=== PATIENT | female | born 1965 | race Caucasian/White ===

== ENCOUNTER 2016-12-05 10:50 | Inpatient (IN) | payer OTHER ==
[2016-12-05 12:36] VITALS: BMI 26.5
--- NOTE | 2016-12-05 12:44 | HP ---
COWS - Scale Resting Pulse: 0= ID 80 or Below Sweatin=Flushed/Facial Moisture Restless Observation: 3= Extraneous Movement Pupil Size: 2= Moderately Dilated Bone or Joint Aches: 2= Severe Diffuse Aches Runny Nose/ Eye Tearin= Runny Nose/Eyes GI Upset > 30mins: 3= Vomiting/Diarrhea Tremor Observation: 2= Slight Tremor Visible Yawning Observation: 2= >3x During Session Anxiety or Irritability: 2=Irritable/Anxious Goose Flesh Skin: 0=Smooth Skin COWS Score: 20 CIWA Score - CIWA Score Nausea/Vomitin Muscle Tremors: 3 Anxiety: 3 Agitation: 3 Paroxysmal Sweats: 2 Orientation: 0-Oriented Tacttile Disturbances: 2-Mild Itch/Numbness/Burn Auditory Disturbances: 2-Mild Harshness/Frighten Visual Disturbances: 2-Mild Sensitivity Headache: 2-Mild CIWA-Ar Total Score: 22 Admission ROS BHS - HPI Chief Complaint: i need help to stop using drugs and alcohol Allergies/Adverse Reactions: Allergies Allergy/AdvReac Type Severity Reaction Status Date / Time No Known Allergies Allergy Verified 12/05/16 12:36 History of Present Illness: this 51 years old female with heroin,opiate dependence,alcohol,xanax,cocaine dependence,seeking help to stop,last treatment in ab at [facility] 01/07 depression nicotine dependence, weight loss no significant period of sobriety Exam Limitations: No Limitations - Ebola screening Have you traveled outside of the country in the last 21 days: No Have you had contact with anyone from an Ebola affected area: No Have you been sick,other than usual withdrawal symptoms: No Do you have a fever: No - Review of Systems Constitutional: Chills, Loss of Appetite, Malaise, Night Sweats, Changes in sleep, Weakness, Unintentional Wgt. Loss EENT: reports: Tearing, Nose Congestion Respiratory: reports: No Symptoms reported Cardiac: reports: No Symptoms Reported GI: reports: Diarrhea, Nausea, Vomiting, Abdominal cramping : reports: No Symptoms Reported Musculoskeletal: reports: Joint Pain, Joint Swelling, Muscle Pain, Joint Stiffness Integumentary: reports: Dryness Neuro: reports: Headache, Tremors Endocrine: reports: No Symptoms Reported Hematology: reports: No Symptoms Reported Psychiatric: reports: Judgement Intact, Depressed Other Systems: Reviewed and Negative Patient History - Patient Medical History Hx Anemia: No Hx Asthma: No Hx Chronic Obstructive Pulmonary Disease (COPD): No Hx Cancer: No Hx Cardiac Disorders: No Hx Congestive Heart Failure: No Hx Hypertension: No Hx Hypercholesterolemia: No Hx Pacemaker: No HX Cerebrovascular Accident: No Hx Seizures: No Hx Dementia: No Hx Diabetes: No Hx Gastrointestinal Disorders: Yes (COLITIS) Hx Liver Disease: No Hx Genitourinary Disorders: No Hx Sexually Transmitted Disorders: No Hx Renal Disease (ESRD): No Hx Thyroid Disease: No Hx Human Immunodeficiency Virus (HIV): No (last 01/07 negative) Hx Hepatitis C: No Hx Depression: Yes Hx Suicide Attempt: No Hx Bipolar Disorder: No Hx Schizophrenia: No Other Medical History: no suicidal,no homicidal - Patient Surgical History Past Surgical History: No - PPD History Previous Implant?: Yes Documented Results: Negative w/proof Implanted On Prior [facility] Admission?: No PPD to be Administered?: Yes - Reproductive History Patient is a Female of Child Bearing Age (11 -55 yrs old): Yes Last Menstrual Period: 11/29/16 Patient : No - Smoking Cessation Smoking history: Current every day smoker Have you smoked in the past 12 months: Yes Aproximately how many cigarettes per day: 20 Cigars Per Day: 0 Hx Chewing Tobacco Use: No Initiated information on smoking cessation: Yes 'Breaking Loose' booklet given: 12/05/16 - Substance & Tx. History Hx Alcohol Use: Yes Hx Substance Use: Yes Substance Use Type: Alcohol, Cocaine, Heroin, Tranquilizers Hx Substance Use Treatment: Yes ([facility] 01/07) - Substances Abused Heroin Route: Inhalation Frequency: Daily Amount used: 1 BAG Age of first use: 48 Date of Last Use: 11/21/16 Alcohol Route: Oral Frequency: Daily Amount used: 2 VODKA DRINKS Age of first use: 22 Date of Last Use: 11/21/16 Alprazolam (Xanax) Route: Oral Frequency: Daily Amount used: 3MG Age of first use: 45 Date of Last Use: 12/03/16 Cocaine Route: Inhalation Frequency: 1-3 times last 30 days Amount used: 1 GRAM Age of first use: 41 Date of Last Use: 11/29/16 VICODIN OR PERCOCET Route: Oral Frequency: Daily Amount used: 5 (10MG) PILLS Age of first use: 41 Date of Last Use: 12/05/16 Family Disease History - Family Disease History Family History: Denies Admission Physical Exam [facility] - Vital Signs Vital Signs: Vital Signs - 24 hr 12/05/16 12:32 Temperature 96.4 F L Pulse Rate 69 Respiratory 18 Rate Blood Pressure 138/74 - Physical General Appearance: Yes: Moderate Distress, Tremorous, Irritable, Sweating, Anxious HEENTM: Yes: Hearing grossly Normal, Nasal Congestion Respiratory: Yes: Lungs Clear, Normal Breath Sounds, No Respiratory Distress Neck: Yes: Within Normal Limits Breast: Yes: Breast Exam Deferred Cardiology: Yes: Within Normal Limits, Regular Rhythm, Regular Rate, S1, S2 Abdominal: Yes: Within Normal Limits, Normal Bowel Sounds, Non Tender, Flat, Soft Genitourinary: Yes: Within Normal Limits Back: Yes: Muscle Spasm Musculoskeletal: Yes: Back pain, Joint Stiffness, Muscle Pain, Muscle weakness Extremities: Yes: Normal Range of Motion, Tremors Neurological: Yes: reprographics technician II-XII NML intact, Fully Oriented, Alert, Motor Strength 5/5 Integumentary: Yes: Dry Lymphatic: Yes: Within Normal Limits - Diagnostic (1) Opioid dependence with withdrawal Current Visit: Yes Status: Acute (2) Uncomplicated sedative, hypnotic or anxiolytic withdrawal Current Visit: Yes Status: Acute (3) Cocaine dependence Current Visit: Yes Status: Acute (4) Weight loss Current Visit: Yes Status: Chronic (5) Depression Current Visit: Yes Status: Acute (6) Nicotine dependence Current Visit: Yes Status: Acute (7) Colitis Current Visit: Yes Status: Chronic Cleared for Admission [facility] - Detox or Rehab [facility] Level of Care: Medically Managed Detox Regimen/Protocol: Methadone/Valium [facility] Breath Alcohol Content Breath Alcohol Content: 0 Urine Pregancy Test - Result Urine Test Results: Negative- NO Line Present Urine Drug Screen - Results Drug Screen Negative: No Urine Drug Screen Results: NERI-Cocaine, BZO-Benzodiazepines, MTD-Methadone, TCA- Tricyclic Antidepress, OXY-Oxycodone
[2016-12-05] MEDS ORDERED: IBUPROFEN 400 MG TABLET (FP) PO PRN (12:57)
[2016-12-05] MEDS ORDERED: NICOTINE POLACRILEX 2 MG GUM BC PRN (12:57)
[2016-12-05] MEDS ORDERED: MENTHOL/PHENOL 1 EACH UD MM PRN (12:57)
[2016-12-05] MEDS ORDERED: MAGNESIUM HYDROX 2400MG/30ML ORAL SUSPENSION 30 ML CUP PO PRN (12:57)
[2016-12-05] MEDS ORDERED: guaiFENesin/D-METHORPHAN HB 10 ML UNIT-DOSE CUPS PO PRN (12:57)
[2016-12-05] MEDS ORDERED: ACETAMINOPHEN 325 MG TABLET (FP) PO PRN (12:57)
[2016-12-05] MEDS ORDERED: MAGNESIUM CITRATE 300 ML BOTTLE PO PRN (12:57)
[2016-12-05] MEDS ORDERED: MAG HYDROX/AL HYDROX/SIMETH 30 ML UNIT-DOSE CUP PO PRN (12:57)
[2016-12-05] MEDS ORDERED: P-EPHED 60MG/TRIPROLIDI 2.5MG TABLET PO PRN (12:57)
[2016-12-05] MEDS ORDERED: hydrOXYzine PAMOATE 50 MG CAPSULE (FP) PO PRN (12:57)
[2016-12-05] MEDS ORDERED: LOPERAMIDE HCL 2 MG CAPSULE PO PRN (12:57)
[2016-12-05] MEDS ORDERED: diphenhydrAMINE HCL 50 MG CAPSULE PO PRN (12:57)
[2016-12-05] MEDS ORDERED: CYCLOBENZAPRINE HCL 10 MG TABLET (FP) PO PRN (13:03)
[2016-12-05] MEDS ORDERED: diazePAM 5 MG TABLET PO ONE (14:00)
[2016-12-05] MEDS ORDERED: METHADONE HCL 10 MG TABLET (FOR DETOX USE ONLY) PO ONE ×2 (14:00→23:00)
[2016-12-05] MEDS: NICOTINE 21 MG/24 HOURS TOPICAL PATCH TD SCH (14:09)
--- NOTE | 2016-12-05 16:32 | CONSULT ---
[facility] Psychiatric Consult - Data Date of interview: 12/05/16 Admission source: [facility] Identifying data: First admission to [facility] for this 51 y/o female seeking detox treatment on for opioid,cocaine,xanax and alcohol dependence.Patient is ,a mother of two,domiciled,unemployed and supported by her . Substance Abuse History: Smokes one pack of cigarettes daily.Patient admits to spending 50-60 dollars a day on illicit percocet (last use early today),using cocaine three times a month via snorting for a total amount of 450 dollars ( since 1999/last use 12/04/16).Has been on xanax for past 10 years at the dose of 2mg four times/day (last taken 12/03/16).Drinks vodka sporadically since age 20 ( a couple of glasses weekly/last use : two weeks ago). Medical History: Colitis.Noted sunburn (discoloration and scaly skin on forehead ). Psychiatric History: Patient admits to a brief psychiatric hospitalization at [facility] three years ago for mood dysregulation and suicidal threats (patient states that she was involved in an argument with spouse).Released after three days of observation (self-report).No OPD follow up.However,the patient reports that she was placed on wellbutrin 150 mg/day,adderall and xanax by her primary care doctor.Ms Childs denies history of suicide attempts. Physical/Sexual Abuse/Trauma History: Patient denies history of suicide attempts. Additional Comment: Urine Drug Screen is positive for cocaine,benzodiazepines, methadone,tricyclic antidepressant and oxycodone. Mental Status Exam - Mental Status Exam Alert and Oriented to: Time, Place, Person Cognitive Function: Good Patient Appearance: Well Groomed Mood: Hopeful, Euthymic Affect: Appropriate, Normal Range Patient Behavior: Appropriate, Cooperative Speech Pattern: Clear, Appropriate Voice Loudness: Normal Thought Process: Goal Oriented Thought Disorder: Not Present Hallucinations: Denies Suicidal Ideation: Denies Homicidal Ideation: Denies Insight/Judgement: Poor Sleep: Poorly, Difficulty falling asleep Appetite: Good Muscle strength/Tone: Normal Gait/Station: Normal Psychiatric Findings - Problem List ([place] 1, 2,3) (1) Cocaine dependence Current Visit: Yes Status: Acute (2) Nicotine dependence Current Visit: Yes Status: Acute (3) Opioid dependence with withdrawal Current Visit: Yes Status: Acute (4) Uncomplicated sedative, hypnotic or anxiolytic withdrawal Current Visit: Yes Status: Acute (5) Substance induced mood disorder Current Visit: Yes Status: Acute (6) Colitis Current Visit: Yes Status: Chronic (7) Weight loss Current Visit: Yes Status: Chronic (8) Insomnia Current Visit: Yes Status: Acute - Initial Treatment Plan Initial Treatment Plan: Psychoeducation provided.Detoxification in progress.[facility] report is read and appreciated.Recent pharmacy claims reviewed.Medications confirmed by filled scripts for wellbutrin on 11/26/16 + trazodone 50 mg/hs on at [facility] # [id number].Side effects/benefits discussed with patient.She consents to resume these drugs in this hospital course.Observation.NO scripts needed at discharge.
[2016-12-05 16:49] LABS: URINE APPEARANCE CLEAR; URINE BILIRUBIN NEGATIVE (NEGATIVE); URINE COLOR YELLOW; URINE GLUCOSE (UA) NEGATIVE (NEGATIVE); URINE KETONE NEGATIVE (NEGATIVE); URINE LEUK ESTERASE NEGATIVE (NEGATIVE); URINE NITRITE NEGATIVE (NEGATIVE); URINE PROTEIN NEGATIVE (NEGATIVE); URINE UROBILINOGEN NEGATIVE mg/dL (0.2-1.0)
[2016-12-05 16:54] LABS: URINE BLOOD 1+ (NEGATIVE)
[2016-12-05 16:59] LABS: URINE MUCUS RARE; URINE RBC 1 /hpf (0-3); URINE WBC 1 /hpf (3-5)
[2016-12-05] MEDS: diazePAM 5 MG TABLET PO PRN (17:11)
[2016-12-05] MEDS ORDERED: traZODone HCL 100 MG TABLET (FP) PO SCH (22:00)
[2016-12-05] MEDS: cloNIDine HCL 0.1 MG TABLET PO SCH (22:32)
[2016-12-05] MEDS: THIAMINE HCL 100 MG TABLET (FP) PO SCH (22:32)
[2016-12-05] MEDS: traZODone HCL 50 MG TABLET (FP) PO SCH (22:32)
[2016-12-05] MEDS: diazePAM 5 MG TABLET PO SCH (22:32)
[2016-12-06] MEDS: diazePAM 5 MG TABLET PO SCH ×3 (06:06→22:27)
[2016-12-06] MEDS ORDERED: METHADONE HCL 10 MG TABLET (FOR DETOX USE ONLY) PO SCH (10:00)
[2016-12-06 10:24] LABS: MCH 34.7 pg (25.7-33.7); MCHC 34.4 g/dl (32.0-36.0); MEAN CELL VOLUME 100.9 fl (80-96); PLATELET COUNT 176 K/MM3 (134-434)
[2016-12-06] MEDS: NICOTINE 21 MG/24 HOURS TOPICAL PATCH TD SCH (10:31)
[2016-12-06] MEDS: PRENATAL VITAMINS W/ FOLIC ACID TABLET (FP) PO SCH (10:31)
[2016-12-06] MEDS: cloNIDine HCL 0.1 MG TABLET PO SCH ×2 (10:31→22:29)
[2016-12-06 10:34] LABS: ALBUMIN 3.1 g/dl (3.4-5.0); ANION GAP 4 (8-16); CALCIUM 8.2 mg/dL (8.5-10.1); CO2 30 mmol/L (21-32); GLUCOSE,RANDOM 104 mg/dL (74-106)
[2016-12-06 10:39] LABS: ALK PHOS 64 U/L (45-117); BILIRUBIN,TOTAL 0.4 mg/dL (0.2-1.0); CREATININE 0.7 mg/dL (0.55-1.02); SGOT/AST 13 U/L (15-37); SGPT/ALT 18 U/L (12-78)
--- NOTE | 2016-12-06 11:13 | PN ---
S CIWA - CIWA Score Nausea/Vomitin Muscle Tremors: 3 Anxiety: 3 Agitation: 3 Paroxysmal Sweats: 3 Orientation: 0-Oriented Tacttile Disturbances: 1-Very Mild Itch/Numbness Auditory Disturbances: 0-None Visual Disturbances: 0-None Headache: 2-Mild CIWA-Ar Total Score: 18 BHS COWS - Scale Resting Pulse: 0= [place] 80 or Below Sweatin=Flushed/Facial Moisture Restless Observation: 3= Extraneous Movement Pupil Size: 0= Normal to Room Light Bone or Joint Aches: 2= Severe Diffuse Aches Runny Nose/ Eye Tearin= Nasal Congestion GI Upset > 30mins: 2= Nausea/Diarrhea Tremor Observation of Outstretched Hands: 2= Slight Tremor Visible Yawning Observation: 1= 1-2x During Session Anxiety or Irritability: 2=Irritable/Anxious Goose Flesh Skin: 3=Piloerection COWS Score: 18 S Progress Note (SOAP) Subjective: shakes, sweats, irritability, N/V Objective: 12/06/16 11:12 Vital Signs 12/06/16 12/06/16 12/06/16 03:29 06:00 09:06 Temperature 97.7 F 96.8 F L Pulse Rate 61 62 Respiratory 18 18 18 Rate Blood Pressure 96/59 99/50 Laboratory Last Values WBC 6.0 K/mm3 (4.0-10.0) 12/06/16 07:20 RBC 3.72 M/mm3 (3.60-5.2) 12/06/16 07:20 Hgb 12.9 GM/dL (10.7-15.3) 12/06/16 07:20 Hct 37.5 % (32.4-45.2) 12/06/16 07:20 MCV 100.9 fl (80-96) H 12/06/16 07:20 MCH 34.7 pg (25.7-33.7) H 12/06/16 07:20 MCHC 34.4 g/dl (32.0-36.0) 12/06/16 07:20 RDW 13.0 % (11.6-15.6) 12/06/16 07:20 Plt Count 176 K/MM3 (134-434) 12/06/16 07:20 MPV 8.0 fl (7.5-11.1) 12/06/16 07:20 Sodium 139 mmol/L (136-145) 12/06/16 07:20 Potassium 4.1 mmol/L (3.5-5.1) 12/06/16 07:20 Chloride 105 mmol/L (98-107) 12/06/16 07:20 Carbon Dioxide 30 mmol/L (21-32) 12/06/16 07:20 Anion Gap 4 (8-16) L 12/06/16 07:20 BUN 13 mg/dL (7-18) 12/06/16 07:20 Creatinine 0.7 mg/dL (0.55-1.02) 12/06/16 07:20 Creat Clearance w eGFR > 60 (>60) 12/06/16 07:20 Random Glucose 104 mg/dL (74-106) 12/06/16 07:20 Calcium 8.2 mg/dL (8.5-10.1) L 12/06/16 07:20 Total Bilirubin 0.4 mg/dL (0.2-1.0) 12/06/16 07:20 AST 13 U/L (15-37) L 12/06/16 07:20 ALT 18 U/L (12-78) 12/06/16 07:20 Alkaline Phosphatase 64 U/L (45-117) 12/06/16 07:20 Total Protein 6.0 g/dl (6.4-8.2) L 12/06/16 07:20 Albumin 3.1 g/dl (3.4-5.0) L 12/06/16 07:20 Urine Color Yellow 12/05/16 13:55 Urine Appearance Clear 12/05/16 13:55 Urine pH 5.0 (5.0-8.0) 12/05/16 13:55 Ur Specific [place] 1.025 (1.005-1.025) 12/05/16 13:55 Urine Protein Negative (NEGATIVE) 12/05/16 13:55 Urine Glucose (UA) Negative (NEGATIVE) 12/05/16 13:55 Urine Ketones Negative (NEGATIVE) 12/05/16 13:55 Urine Blood 1+ (NEGATIVE) H 12/05/16 13:55 Urine Nitrite Negative (NEGATIVE) 12/05/16 13:55 Urine Bilirubin Negative (NEGATIVE) 12/05/16 13:55 Urine Urobilinogen Negative mg/dL (0.2-1.0) 12/05/16 13:55 Ur Leukocyte Esterase Negative (NEGATIVE) 12/05/16 13:55 Urine RBC 1 /hpf (0-3) 12/05/16 13:55 Urine WBC 1 /hpf (3-5) 12/05/16 13:55 Ur Epithelial Cells Rare /hpf (FEW) 12/05/16 13:55 Urine Mucus Rare 12/05/16 13:55 Labs noted Assessment: 12/06/16 11:13 withdrawal sx Plan: continue detox
[2016-12-06] MEDS: traZODone HCL 50 MG TABLET (FP) PO SCH (22:26)
[2016-12-06] MEDS: THIAMINE HCL 100 MG TABLET (FP) PO SCH (22:29)
--- NOTE | 2016-12-07 07:43 | EKG ---
Test Reason : Blood Pressure : / mmHG Vent. Rate : 064 BPM Atrial Rate : 064 BPM P-R Int : 138 ms QRS Dur : 100 ms QT Int : 436 ms P-R-T Axes : 071 068 047 degrees QTc Int : 449 ms NORMAL SINUS RHYTHM NORMAL ECG WHEN COMPARED WITH ECG OF 24-OCT-2004 08:53, PREMATURE ATRIAL COMPLEXES ARE NO LONGER PRESENT NONSPECIFIC T WAVE ABNORMALITY NOW EVIDENT IN ANTERIOR LEADS Confirmed by RAMY HIDALGO, TESSA ([id number]) on 12/07/2016 7:42:38 AM Referred By: FRED GUAJARDO Confirmed By:TESSA MCCANN MD
[2016-12-07] MEDS: NICOTINE 21 MG/24 HOURS TOPICAL PATCH TD SCH (10:20)
[2016-12-07] MEDS: diazePAM 5 MG TABLET PO SCH ×2 (10:21→22:47)
[2016-12-07] MEDS: PRENATAL VITAMINS W/ FOLIC ACID TABLET (FP) PO SCH (10:21)
[2016-12-07] MEDS: METHADONE HCL 5 MG TABLET (FOR DETOX USE ONLY) PO SCH (10:21)
[2016-12-07] MEDS: cloNIDine HCL 0.1 MG TABLET PO SCH ×2 (10:21→22:47)
[2016-12-07] MEDS ORDERED: BISACODYL 5 MG TABLET.DR (FP) PO ONE ×2 (11:42→15:00)
[2016-12-07] MEDS: diazePAM 5 MG TABLET PO PRN (14:50)
--- NOTE | 2016-12-07 16:50 | PN ---
S CIWA - CIWA Score Nausea/Vomitin-Mild Nausea/No Vomiting Muscle Tremors: 4-Moderate,w/Arms Extend Anxiety: 4-Mod. Anxious/Guarded Agitation: 3 Paroxysmal Sweats: 1-Minimal Palms Moist Orientation: 0-Oriented Tacttile Disturbances: 1-Very Mild Itch/Numbness Auditory Disturbances: 0-None Visual Disturbances: 0-None Headache: 2-Mild CIWA-Ar Total Score: 16 BHS COWS - Scale Resting Pulse: 0= [place] 80 or Below Sweatin=Flushed/Facial Moisture Restless Observation: 3= Extraneous Movement Pupil Size: 0= Normal to Room Light Bone or Joint Aches: 2= Severe Diffuse Aches Runny Nose/ Eye Tearin= Runny Nose/Eyes GI Upset > 30mins: 1= Stomach Cramp Tremor Observation of Outstretched Hands: 2= Slight Tremor Visible Yawning Observation: 1= 1-2x During Session Anxiety or Irritability: 2=Irritable/Anxious Goose Flesh Skin: 0=Smooth Skin COWS Score: 15 [facility] Progress Note (SOAP) Subjective: Anxious, sweating, stomach ache, constipation (last bm on ), interrupted sleep Objective: 12/07/16 16:47 Last Vital Signs Temp Pulse Resp BP Pulse Ox 97.1 F L 65 18 98/64 12/07/16 13:49 12/07/16 13:49 12/07/16 13:49 12/07/16 13:49 Laboratory Tests 12/05/16 12/06/16 12/06/16 13:55 07:20 07:20 WBC 6.0 RBC 3.72 Hgb 12.9 Hct 37.5 MCV 100.9 H MCH 34.7 H MCHC 34.4 RDW 13.0 Plt Count 176 MPV 8.0 Sodium 139 Potassium 4.1 Chloride 105 Carbon Dioxide 30 Anion Gap 4 L BUN 13 Creatinine 0.7 Creat Clearance w eGFR > 60 Random Glucose 104 Calcium 8.2 L Total Bilirubin 0.4 AST 13 L ALT 18 Alkaline Phosphatase 64 Total Protein 6.0 L Albumin 3.1 L Urine Color Yellow Urine Appearance Clear Urine pH 5.0 Ur Specific [place] 1.025 Urine Protein Negative Urine Glucose (UA) Negative Urine Ketones Negative Urine Blood 1+ H Urine Nitrite Negative Urine Bilirubin Negative Urine Urobilinogen Negative Ur Leukocyte Esterase Negative Urine RBC 1 Urine WBC 1 Ur Epithelial Cells Rare Urine Mucus Rare RPR Titer 12/06/16 07:20 WBC RBC Hgb Hct MCV MCH MCHC RDW Plt Count MPV Sodium Potassium Chloride Carbon Dioxide Anion Gap BUN Creatinine Creat Clearance w eGFR Random Glucose Calcium Total Bilirubin AST ALT Alkaline Phosphatase Total Protein Albumin Urine Color Urine Appearance Urine pH Ur Specific [place] Urine Protein Urine Glucose (UA) Urine Ketones Urine Blood Urine Nitrite Urine Bilirubin Urine Urobilinogen Ur Leukocyte Esterase Urine RBC Urine WBC Ur Epithelial Cells Urine Mucus RPR Titer Nonreactive Labs noted: UA 1+ blood Noted with low blood pressure Assessment: 12/07/16 16:48 Withdrawal symptoms Noted with microscopic hematuria c/o acute constipation Plan: Continue detox Microscopic hematuria: encouraged to drink lots of water, repeat UA Acute constipation: dulcolax 10mg PO x 1 dose
[2016-12-07] MEDS: traZODone HCL 50 MG TABLET (FP) PO SCH (22:47)
[2016-12-07] MEDS: THIAMINE HCL 100 MG TABLET (FP) PO SCH (22:47)
[2016-12-08] MEDS: NICOTINE 21 MG/24 HOURS TOPICAL PATCH TD SCH (10:35)
[2016-12-08] MEDS: METHADONE HCL 5 MG TABLET (FOR DETOX USE ONLY) PO SCH (10:35)
[2016-12-08] MEDS: diazePAM 5 MG TABLET PO SCH ×2 (10:35→22:29)
[2016-12-08] MEDS: PRENATAL VITAMINS W/ FOLIC ACID TABLET (FP) PO SCH (10:35)
[2016-12-08] MEDS: cloNIDine HCL 0.1 MG TABLET PO SCH ×2 (11:25→22:28)
--- NOTE | 2016-12-08 12:10 | PN ---
S Progress Note (SOAP) Subjective: SLIGHT ANXIETY,SWEATS. DENIES OVERT ACUTE DISTRESS. Objective: 12/08/16 12:08 Vital Signs Temperature 96.8 F L 12/08/16 09:56 Pulse Rate 58 L 12/08/16 09:56 Respiratory Rate 18 12/08/16 09:56 Blood Pressure 86/57 12/08/16 09:56 O2 Sat by Pulse Oximetry (%) Laboratory Last Values WBC 6.0 K/mm3 (4.0-10.0) 12/06/16 07:20 RBC 3.72 M/mm3 (3.60-5.2) 12/06/16 07:20 Hgb 12.9 GM/dL (10.7-15.3) 12/06/16 07:20 Hct 37.5 % (32.4-45.2) 12/06/16 07:20 MCV 100.9 fl (80-96) H 12/06/16 07:20 MCH 34.7 pg (25.7-33.7) H 12/06/16 07:20 MCHC 34.4 g/dl (32.0-36.0) 12/06/16 07:20 RDW 13.0 % (11.6-15.6) 12/06/16 07:20 Plt Count 176 K/MM3 (134-434) 12/06/16 07:20 MPV 8.0 fl (7.5-11.1) 12/06/16 07:20 Sodium 139 mmol/L (136-145) 12/06/16 07:20 Potassium 4.1 mmol/L (3.5-5.1) 12/06/16 07:20 Chloride 105 mmol/L (98-107) 12/06/16 07:20 Carbon Dioxide 30 mmol/L (21-32) 12/06/16 07:20 Anion Gap 4 (8-16) L 12/06/16 07:20 BUN 13 mg/dL (7-18) 12/06/16 07:20 Creatinine 0.7 mg/dL (0.55-1.02) 12/06/16 07:20 Creat Clearance w eGFR > 60 (>60) 12/06/16 07:20 Random Glucose 104 mg/dL (74-106) 12/06/16 07:20 Calcium 8.2 mg/dL (8.5-10.1) L 12/06/16 07:20 Total Bilirubin 0.4 mg/dL (0.2-1.0) 12/06/16 07:20 AST 13 U/L (15-37) L 12/06/16 07:20 ALT 18 U/L (12-78) 12/06/16 07:20 Alkaline Phosphatase 64 U/L (45-117) 12/06/16 07:20 Total Protein 6.0 g/dl (6.4-8.2) L 12/06/16 07:20 Albumin 3.1 g/dl (3.4-5.0) L 12/06/16 07:20 Urine Color Yellow 12/05/16 13:55 Urine Appearance Clear 12/05/16 13:55 Urine pH 5.0 (5.0-8.0) 12/05/16 13:55 Ur Specific [place] 1.025 (1.005-1.025) 12/05/16 13:55 Urine Protein Negative (NEGATIVE) 12/05/16 13:55 Urine Glucose (UA) Negative (NEGATIVE) 12/05/16 13:55 Urine Ketones Negative (NEGATIVE) 12/05/16 13:55 Urine Blood 1+ (NEGATIVE) H 12/05/16 13:55 Urine Nitrite Negative (NEGATIVE) 12/05/16 13:55 Urine Bilirubin Negative (NEGATIVE) 12/05/16 13:55 Urine Urobilinogen Negative mg/dL (0.2-1.0) 12/05/16 13:55 Ur Leukocyte Esterase Negative (NEGATIVE) 12/05/16 13:55 Urine RBC 1 /hpf (0-3) 12/05/16 13:55 Urine WBC 1 /hpf (3-5) 12/05/16 13:55 Ur Epithelial Cells Rare /hpf (FEW) 12/05/16 13:55 Urine Mucus Rare 12/05/16 13:55 RPR Titer Nonreactive (NONREACTIVE) 12/06/16 07:20 Assessment: 12/08/16 12:09 WITHDRAWAL SX Plan: CONTINUE DETOX INCREASE PO FLUIDS.
[2016-12-08] MEDS: diazePAM 5 MG TABLET PO PRN (12:36)
[2016-12-08 16:06] LABS: URINE APPEARANCE CLEAR; URINE BILIRUBIN NEGATIVE (NEGATIVE); URINE BLOOD NEGATIVE (NEGATIVE); URINE COLOR STRAW; URINE GLUCOSE (UA) NEGATIVE (NEGATIVE); URINE KETONE NEGATIVE (NEGATIVE); URINE LEUK ESTERASE NEGATIVE (NEGATIVE); URINE NITRITE NEGATIVE (NEGATIVE); URINE PROTEIN NEGATIVE (NEGATIVE); URINE UROBILINOGEN NEGATIVE mg/dL (0.2-1.0)
[2016-12-08] MEDS: traZODone HCL 50 MG TABLET (FP) PO SCH (22:28)
[2016-12-08] MEDS: THIAMINE HCL 100 MG TABLET (FP) PO SCH (22:28)
[2016-12-09] MEDS ORDERED: diazePAM 5 MG TABLET PO SCH (10:00)
[2016-12-09] MEDS ORDERED: METHADONE HCL 10 MG TABLET (FOR DETOX USE ONLY) PO SCH (10:00)
[2016-12-09] MEDS: NICOTINE 21 MG/24 HOURS TOPICAL PATCH TD SCH (10:03)
[2016-12-09] MEDS: cloNIDine HCL 0.1 MG TABLET PO SCH ×2 (10:03→22:22)
[2016-12-09] MEDS: PRENATAL VITAMINS W/ FOLIC ACID TABLET (FP) PO SCH (10:03)
--- NOTE | 2016-12-09 10:28 | PN ---
S Progress Note (SOAP) Subjective: DETOX PROCEEDING WELL,DECREASED C/O DISCOMFORT. Objective: 12/09/16 10:27 Vital Signs Temperature 97.0 F L 12/09/16 09:49 Pulse Rate 65 12/09/16 09:49 Respiratory Rate 18 12/09/16 09:49 Blood Pressure 94/64 12/09/16 09:49 O2 Sat by Pulse Oximetry (%) Laboratory Last Values WBC 6.0 K/mm3 (4.0-10.0) 12/06/16 07:20 RBC 3.72 M/mm3 (3.60-5.2) 12/06/16 07:20 Hgb 12.9 GM/dL (10.7-15.3) 12/06/16 07:20 Hct 37.5 % (32.4-45.2) 12/06/16 07:20 MCV 100.9 fl (80-96) H 12/06/16 07:20 MCH 34.7 pg (25.7-33.7) H 12/06/16 07:20 MCHC 34.4 g/dl (32.0-36.0) 12/06/16 07:20 RDW 13.0 % (11.6-15.6) 12/06/16 07:20 Plt Count 176 K/MM3 (134-434) 12/06/16 07:20 MPV 8.0 fl (7.5-11.1) 12/06/16 07:20 Sodium 139 mmol/L (136-145) 12/06/16 07:20 Potassium 4.1 mmol/L (3.5-5.1) 12/06/16 07:20 Chloride 105 mmol/L (98-107) 12/06/16 07:20 Carbon Dioxide 30 mmol/L (21-32) 12/06/16 07:20 Anion Gap 4 (8-16) L 12/06/16 07:20 BUN 13 mg/dL (7-18) 12/06/16 07:20 Creatinine 0.7 mg/dL (0.55-1.02) 12/06/16 07:20 Creat Clearance w eGFR > 60 (>60) 12/06/16 07:20 Random Glucose 104 mg/dL (74-106) 12/06/16 07:20 Calcium 8.2 mg/dL (8.5-10.1) L 12/06/16 07:20 Total Bilirubin 0.4 mg/dL (0.2-1.0) 12/06/16 07:20 AST 13 U/L (15-37) L 12/06/16 07:20 ALT 18 U/L (12-78) 12/06/16 07:20 Alkaline Phosphatase 64 U/L (45-117) 12/06/16 07:20 Total Protein 6.0 g/dl (6.4-8.2) L 12/06/16 07:20 Albumin 3.1 g/dl (3.4-5.0) L 12/06/16 07:20 Urine Color [place] 12/08/16 13:20 Urine Appearance Clear 12/08/16 13:20 Urine pH 6.0 (5.0-8.0) 12/08/16 13:20 Ur Specific [place] <= 1.005 (1.005-1.025) 12/08/16 13:20 Urine Protein Negative (NEGATIVE) 12/08/16 13:20 Urine Glucose (UA) Negative (NEGATIVE) 12/08/16 13:20 Urine Ketones Negative (NEGATIVE) 12/08/16 13:20 Urine Blood Negative (NEGATIVE) 12/08/16 13:20 Urine Nitrite Negative (NEGATIVE) 12/08/16 13:20 Urine Bilirubin Negative (NEGATIVE) 12/08/16 13:20 Urine Urobilinogen Negative mg/dL (0.2-1.0) 12/08/16 13:20 Ur Leukocyte Esterase Negative (NEGATIVE) 12/08/16 13:20 Urine RBC 1 /hpf (0-3) 12/05/16 13:55 Urine WBC 1 /hpf (3-5) 12/05/16 13:55 Ur Epithelial Cells Rare /hpf (FEW) 12/05/16 13:55 Urine Mucus Rare 12/05/16 13:55 RPR Titer Nonreactive (NONREACTIVE) 12/06/16 07:20 Assessment: 12/09/16 10:27 DECREASED WITHDRAWAL SX Plan: CONTINUE DETOX
[2016-12-09] MEDS: traZODone HCL 50 MG TABLET (FP) PO SCH (22:22)
[2016-12-09] MEDS: THIAMINE HCL 100 MG TABLET (FP) PO SCH (22:22)
[2016-12-10 05:57] VITALS: BP 90/58; PULSE 67; TEMP 97
[2016-12-10] MEDS ORDERED: METHADONE HCL 5 MG TABLET (FOR DETOX USE ONLY) PO SCH (06:00)
--- NOTE | 2016-12-10 08:28 | DS ---
[facility] Detox Discharge Summary Admission Date: 12/05/16 Discharge Date: 12/10/16 - History Present History: Cocaine Dependence, Opioid Dependence, Sedative Dependence Additional Comments: DETOX COMPLETED. REMINDED TO FOLLOW UP WITH MEDICAL CARE AT [facility] IF NEEDED. - Physical Exam Results Vital Signs: Vital Signs Temperature 97 F L 12/10/16 05:56 Pulse Rate 67 12/10/16 05:56 Respiratory Rate 16 12/10/16 05:56 Blood Pressure 90/58 12/10/16 05:56 O2 Sat by Pulse Oximetry (%) - Treatment Hospital Course: Detox Protocol Followed, Detoxed Safely, Responded well, Discharged Condition Good, Rehab Referral Accepted Patient has Accepted a Rehab Referral to: [facility], [place], [place] - Medication Discharge Medications: Ambulatory Orders Bupropion HCl [Wellbutrin Xl -] 150 mg PO DAILY 12/05/16 - Diagnosis (1) Cocaine dependence Current Visit: Yes Status: Acute (2) Nicotine dependence Current Visit: Yes Status: Acute (3) Opioid dependence with withdrawal Current Visit: Yes Status: Acute (4) Uncomplicated sedative, hypnotic or anxiolytic withdrawal Current Visit: Yes Status: Acute - AMA Did Patient Leave Against Medical Advice: No
== END 2016-12-10 08:30 | disposition home or self-care (01) | DRG 773 ==
LOC: YASAS 10:50 → Y3N 13:20
PROVIDERS: ADMIT Internal Medicine; ATTEND Internal Medicine
PROC: HZ2ZZZZ Detoxification Services for Substance Abuse Treatment (ICD-10-PCS; principal; 2016-12-10)
DX: F11.23 Opioid dependence with withdrawal (principal); F13.230 Sedative, hypnotic or anxiolytic dependence with withdrawal, uncomplicated; F10.230 Alcohol dependence with withdrawal, uncomplicated; F14.20 Cocaine dependence, uncomplicated; F17.210 Nicotine dependence, cigarettes, uncomplicated; F19.24 Other psychoactive substance dependence with psychoactive substance-induced mood disorder; G47.00 Insomnia, unspecified; R63.4 Abnormal weight loss; Z68.26 Body mass index [BMI] 26.0-26.9, adult; K52.9 Noninfective gastroenteritis and colitis, unspecified
CPT/HCPCS: 36415; 80053; 81003; 81015; 85027; 86593; 93005; 93010

== ENCOUNTER 2017-05-22 13:13 | Inpatient (IN) | payer OTHER ==
[2017-05-22 14:14] VITALS: BMI 27.6
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
[2017-05-22] MEDS ORDERED: IBUPROFEN 400 MG TABLET (FP) PO PRN (18:14)
[2017-05-22] MEDS ORDERED: MENTHOL/PHENOL 1 EACH UD MM PRN (18:14)
[2017-05-22] MEDS ORDERED: P-EPHED 60MG/TRIPROLIDI 2.5MG TABLET PO PRN (18:14)
[2017-05-22] MEDS ORDERED: MAGNESIUM CITRATE 300 ML BOTTLE PO PRN (18:14)
[2017-05-22] MEDS ORDERED: MAGNESIUM HYDROX 2400MG/30ML ORAL SUSPENSION 30 ML CUP PO PRN (18:14)
[2017-05-22] MEDS ORDERED: ACETAMINOPHEN 325 MG TABLET (FP) PO PRN (18:14)
[2017-05-22] MEDS ORDERED: LOPERAMIDE HCL 2 MG CAPSULE PO PRN (18:14)
[2017-05-22] MEDS ORDERED: guaiFENesin/D-METHORPHAN HB 10 ML UNIT-DOSE CUPS PO PRN (18:14)
[2017-05-22] MEDS ORDERED: ONDANSETRON *ODT* 4 MG TABLET SL PRN (18:17)
[2017-05-22] MEDS ORDERED: METHADONE HCL 10 MG TABLET (FOR DETOX USE ONLY) PO ONE ×2 (18:30→23:00)
[2017-05-22] MEDS: diazePAM 5 MG TABLET PO PRN (19:30)
[2017-05-22] MEDS: NICOTINE 21 MG/24 HOURS TOPICAL PATCH TD SCH (20:56)
[2017-05-22] MEDS: hydrOXYzine PAMOATE 50 MG CAPSULE (FP) PO PRN (22:18)
[2017-05-22] MEDS: THIAMINE HCL 100 MG TABLET (FP) PO SCH (22:18)
[2017-05-23] MEDS: diazePAM 5 MG TABLET PO PRN ×6 (00:31→23:40)
[2017-05-23 03:50] LABS: URINE APPEARANCE CLEAR; URINE BILIRUBIN NEGATIVE (NEGATIVE); URINE BLOOD NEGATIVE (NEGATIVE); URINE COLOR LTYELLOW; URINE GLUCOSE (UA) NEGATIVE (NEGATIVE); URINE KETONE NEGATIVE (NEGATIVE); URINE LEUK ESTERASE NEGATIVE (NEGATIVE); URINE NITRITE NEGATIVE (NEGATIVE); URINE PROTEIN NEGATIVE (NEGATIVE); URINE UROBILINOGEN NEGATIVE mg/dL (0.2-1.0)
[2017-05-23] MEDS ORDERED: METHADONE HCL 10 MG TABLET (FOR DETOX USE ONLY) PO ONE (10:00)
[2017-05-23 10:05] LABS: HEMATOCRIT 41.6 % (32.4-45.2); HEMOGLOBIN 13.7 GM/dL (10.7-15.3); MCH 31.8 pg (25.7-33.7); MEAN CELL VOLUME 96.5 fl (80-96); MEAN PLT VOLUME 7.8 fl (7.5-11.1); PLATELET COUNT 203 K/MM3 (134-434); RBC 4.32 M/mm3 (3.60-5.2); RDW 12.8 % (11.6-15.6); WHITE BLOOD COUNT 8.1 K/mm3 (4.0-10.0)
[2017-05-23 10:14] LABS: ALBUMIN 3.3 g/dl (3.4-5.0); ALK PHOS 80 U/L (45-117); ANION GAP 5 (8-16); BILIRUBIN,TOTAL 0.3 mg/dL (0.2-1.0); BLOOD UREA NITROGEN 15 mg/dL (7-18); CALCIUM 7.9 mg/dL (8.5-10.1); CHLORIDE 104 mmol/L (98-107); CO2 30 mmol/L (21-32); CREATININE 0.9 mg/dL (0.55-1.02); GLUCOSE,RANDOM 87 mg/dL (74-106); SGOT/AST 10 U/L (15-37); SGPT/ALT 17 U/L (12-78); SODIUM 139 mmol/L (136-145); TOT PROT 6.6 g/dl (6.4-8.2)
[2017-05-23] MEDS: PRENATAL VITAMINS W/ FOLIC ACID TABLET (FP) PO SCH (10:20)
[2017-05-23] MEDS: NICOTINE 21 MG/24 HOURS TOPICAL PATCH TD SCH (10:22)
[2017-05-23] MEDS: NICOTINE POLACRILEX 2 MG GUM BUC PRN ×3 (10:22→17:10)
--- NOTE | 2017-05-23 11:27 | EKG ---
Test Reason : Blood Pressure : / mmHG Vent. Rate : 063 BPM Atrial Rate : 063 BPM P-R Int : 130 ms QRS Dur : 104 ms QT Int : 452 ms P-R-T Axes : 051 068 037 degrees QTc Int : 462 ms NORMAL SINUS RHYTHM NORMAL ECG WHEN COMPARED WITH ECG OF 05-DEC-2016 14:23, NO SIGNIFICANT CHANGE WAS FOUND Confirmed by AMBER HIDALGO, CHAZ ([id number]) on 05/23/2017 11:27:32 AM Referred By: Elizabeth RAPHAEL Confirmed By:CHAZ CLARK MD
[2017-05-23] MEDS: hydrOXYzine PAMOATE 50 MG CAPSULE (FP) PO PRN ×2 (12:31→17:10)
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
--- NOTE | 2017-05-23 17:01 | PN ---
BHS COWS - Scale Resting Pulse: 0= [place] 80 or Below Sweatin=Flushed/Facial Moisture Restless Observation: 1= Difficult to Sit Still Pupil Size: 1= Pupils >than Normal Bone or Joint Aches: 1= Mild Discomfort Runny Nose/ Eye Tearin= Nasal Congestion GI Upset > 30mins: 2= Nausea/Diarrhea Tremor Observation of Outstretched Hands: 2= Slight Tremor Visible Yawning Observation: 0= None Anxiety or Irritability: 0= None Goose Flesh Skin: 0=Smooth Skin COWS Score: 10 BHS Progress Note (SOAP) Subjective: sleeping problems, sweats Objective: 05/23/17 17:00 Vital Signs Temperature 98.1 F 05/23/17 13:53 Pulse Rate 71 05/23/17 13:53 Respiratory Rate 18 05/23/17 13:53 Blood Pressure 126/72 05/23/17 13:53 O2 Sat by Pulse Oximetry (%) Laboratory Last Values WBC 8.1 K/mm3 (4.0-10.0) D 05/23/17 08:00 RBC 4.32 M/mm3 (3.60-5.2) 05/23/17 08:00 Hgb 13.7 GM/dL (10.7-15.3) 05/23/17 08:00 Hct 41.6 % (32.4-45.2) 05/23/17 08:00 MCV 96.5 fl (80-96) H 05/23/17 08:00 MCH 31.8 pg (25.7-33.7) 05/23/17 08:00 MCHC 33.0 g/dl (32.0-36.0) 05/23/17 08:00 RDW 12.8 % (11.6-15.6) 05/23/17 08:00 Plt Count 203 K/MM3 (134-434) 05/23/17 08:00 MPV 7.8 fl (7.5-11.1) 05/23/17 08:00 Sodium 139 mmol/L (136-145) 05/23/17 08:00 Potassium 4.0 mmol/L (3.5-5.1) 05/23/17 08:00 Chloride 104 mmol/L (98-107) 05/23/17 08:00 Carbon Dioxide 30 mmol/L (21-32) 05/23/17 08:00 Anion Gap 5 (8-16) L 05/23/17 08:00 BUN 15 mg/dL (7-18) 05/23/17 08:00 Creatinine 0.9 mg/dL (0.55-1.02) D 05/23/17 08:00 Creat Clearance w eGFR > 60 (>60) 05/23/17 08:00 Random Glucose 87 mg/dL (74-106) 05/23/17 08:00 Calcium 7.9 mg/dL (8.5-10.1) L 05/23/17 08:00 Total Bilirubin 0.3 mg/dL (0.2-1.0) D 05/23/17 08:00 AST 10 U/L (15-37) L D 05/23/17 08:00 ALT 17 U/L (12-78) 05/23/17 08:00 Alkaline Phosphatase 80 U/L (45-117) D 05/23/17 08:00 Total Protein 6.6 g/dl (6.4-8.2) 05/23/17 08:00 Albumin 3.3 g/dl (3.4-5.0) L 05/23/17 08:00 Urine Color Ltyellow 05/22/17 23:33 Urine Appearance Clear 05/22/17 23:33 Urine pH 5.0 (5.0-8.0) 05/22/17 23:33 Ur Specific [place] 1.013 (1.001-1.035) 05/22/17 23:33 Urine Protein Negative (NEGATIVE) 05/22/17 23:33 Urine Glucose (UA) Negative (NEGATIVE) 05/22/17 23:33 Urine Ketones Negative (NEGATIVE) 05/22/17 23:33 Urine Blood Negative (NEGATIVE) 05/22/17 23:33 Urine Nitrite Negative (NEGATIVE) 05/22/17 23: Urine Bilirubin Negative (NEGATIVE) 05/22/17 23:33 Urine Urobilinogen Negative mg/dL (0.2-1.0) 05/22/17 23:33 Ur Leukocyte Esterase Negative (NEGATIVE) 05/22/17 23:33 RPR Titer Nonreactive (NONREACTIVE) 05/23/17 08:00 labs noted Assessment: 05/23/17 17:01 withdrawal sx Plan: continue detox
[2017-05-23] MEDS: THIAMINE HCL 100 MG TABLET (FP) PO SCH (22:17)
[2017-05-23] MEDS: ZOLPIDEM TARTRATE 5 MG TABLET PO PRN (22:18)
[2017-05-24] MEDS: hydrOXYzine PAMOATE 50 MG CAPSULE (FP) PO PRN ×3 (01:53→17:18)
[2017-05-24] MEDS ORDERED: METHADONE HCL 5 MG TABLET (FOR DETOX USE ONLY) PO ONE (10:00)
[2017-05-24] MEDS: PRENATAL VITAMINS W/ FOLIC ACID TABLET (FP) PO SCH (10:20)
[2017-05-24] MEDS: NICOTINE 21 MG/24 HOURS TOPICAL PATCH TD SCH (10:21)
[2017-05-24] MEDS: diazePAM 5 MG TABLET PO PRN ×4 (10:22→22:29)
[2017-05-24] MEDS: NICOTINE POLACRILEX 2 MG GUM BUC PRN ×4 (12:15→22:29)
[2017-05-24] MEDS: MAG HYDROX/AL HYDROX/SIMETH 30 ML UNIT-DOSE CUP PO PRN (17:18)
[2017-05-24] MEDS: THIAMINE HCL 100 MG TABLET (FP) PO SCH (22:29)
[2017-05-24] MEDS: ZOLPIDEM TARTRATE 5 MG TABLET PO PRN (22:29)
[2017-05-25] MEDS ORDERED: METHADONE HCL 5 MG TABLET (FOR DETOX USE ONLY) PO ONE (10:00)
[2017-05-25] MEDS: NICOTINE 21 MG/24 HOURS TOPICAL PATCH TD SCH (10:20)
[2017-05-25] MEDS: NICOTINE POLACRILEX 2 MG GUM BUC PRN (10:20)
[2017-05-25] MEDS: PRENATAL VITAMINS W/ FOLIC ACID TABLET (FP) PO SCH (10:20)
[2017-05-25] MEDS: diazePAM 5 MG TABLET PO PRN ×2 (10:21→15:06)
[2017-05-25] MEDS: MAG HYDROX/AL HYDROX/SIMETH 30 ML UNIT-DOSE CUP PO PRN (12:17)
--- NOTE | 2017-05-25 12:17 | PN ---
BHS Progress Note (SOAP) Subjective: ALERT,IRRITABLE,ANXIOUS,TREMOR,PAIN IN THE BODY AND BACK Objective: 05/25/17 12:16 Vital Signs Temperature 98.4 F 05/25/17 10:00 Pulse Rate 68 05/25/17 10:00 Respiratory Rate 18 05/25/17 10:00 Blood Pressure 102/71 05/25/17 10:00 O2 Sat by Pulse Oximetry (%) Assessment: 05/25/17 12:17 WITHDRAWAL SYMPTOM Plan: CONTINUE DETOX
[2017-05-25] MEDS: hydrOXYzine PAMOATE 50 MG CAPSULE (FP) PO PRN (12:19)
[2017-05-25] MEDS ORDERED: RANITIDINE HCL 150 MG TABLET (FP) PO ONE (15:53)
--- NOTE | 2017-05-25 15:56 | PN ---
BHS Progress Note Note: pain in epigastrium,withdrawal symptom,zantac 150 mgs po now then bid,continue detox bp 132/78,p55,r18,t97.2 close monitoring
[2017-05-25] MEDS: THIAMINE HCL 100 MG TABLET (FP) PO SCH (22:18)
[2017-05-25] MEDS: RANITIDINE HCL 150 MG TABLET (FP) PO SCH (22:18)
[2017-05-25] MEDS: ZOLPIDEM TARTRATE 5 MG TABLET PO PRN (22:18)
[2017-05-26] MEDS: hydrOXYzine PAMOATE 50 MG CAPSULE (FP) PO PRN ×4 (01:36→22:06)
[2017-05-26] MEDS ORDERED: METHADONE HCL 10 MG TABLET (FOR DETOX USE ONLY) PO ONE (10:00)
--- NOTE | 2017-05-26 10:10 | PN ---
BHS COWS - Scale Resting Pulse: 0= [place] 80 or Below Sweatin=Flushed/Facial Moisture Restless Observation: 1= Difficult to Sit Still Pupil Size: 0= Normal to Room Light Bone or Joint Aches: 2= Severe Diffuse Aches Runny Nose/ Eye Tearin= Runny Nose/Eyes GI Upset > 30mins: 2= Nausea/Diarrhea Tremor Observation of Outstretched Hands: 2= Slight Tremor Visible Yawning Observation: 1= 1-2x During Session Anxiety or Irritability: 2=Irritable/Anxious Goose Flesh Skin: 0=Smooth Skin COWS Score: 14 BHS Progress Note (SOAP) Subjective: sweats shakes interrupted sleep nausea vomiting body aches Objective: 05/26/17 10:11 Vital Signs Temperature 98.2 F 05/26/17 05:57 Pulse Rate 70 05/26/17 05:57 Respiratory Rate 18 05/26/17 05:57 Blood Pressure 115/66 05/26/17 05:57 O2 Sat by Pulse Oximetry (%) Laboratory Tests 05/22/17 05/23/17 05/23/17 23:33 08:00 08:00 WBC 8.1 D RBC 4.32 Hgb 13.7 Hct 41.6 MCV 96.5 H MCH 31.8 MCHC 33.0 RDW 12.8 Plt Count 203 MPV 7.8 Sodium 139 Potassium 4.0 Chloride 104 Carbon Dioxide 30 Anion Gap 5 L BUN 15 Creatinine 0.9 D Creat Clearance w eGFR > 60 Random Glucose 87 Calcium 7.9 L Total Bilirubin 0.3 D AST 10 L D ALT 17 Alkaline Phosphatase 80 D Total Protein 6.6 Albumin 3.3 L Urine Color Ltyellow Urine Appearance Clear Urine pH 5.0 Ur Specific [place] 1.013 Urine Protein Negative Urine Glucose (UA) Negative Urine Ketones Negative Urine Blood Negative Urine Nitrite Negative Urine Bilirubin Negative Urine Urobilinogen Negative Ur Leukocyte Esterase Negative RPR Titer 05/23/17 08:00 WBC RBC Hgb Hct MCV MCH MCHC RDW Plt Count MPV Sodium Potassium Chloride Carbon Dioxide Anion Gap BUN Creatinine Creat Clearance w eGFR Random Glucose Calcium Total Bilirubin AST ALT Alkaline Phosphatase Total Protein Albumin Urine Color Urine Appearance Urine pH Ur Specific [place] Urine Protein Urine Glucose (UA) Urine Ketones Urine Blood Urine Nitrite Urine Bilirubin Urine Urobilinogen Ur Leukocyte Esterase RPR Titer Nonreactive aaox3 ambulating no acute distress Assessment: 05/26/17 10:12 withdrawal sx Plan: continue detox increase fluids mom/mylanta prn zofran prn
[2017-05-26] MEDS: RANITIDINE HCL 150 MG TABLET (FP) PO SCH ×2 (10:14→22:07)
[2017-05-26] MEDS: PRENATAL VITAMINS W/ FOLIC ACID TABLET (FP) PO SCH (10:14)
[2017-05-26] MEDS: NICOTINE 21 MG/24 HOURS TOPICAL PATCH TD SCH (10:14)
[2017-05-26] MEDS: NICOTINE POLACRILEX 2 MG GUM BUC PRN ×4 (10:17→22:06)
[2017-05-26] MEDS: MAG HYDROX/AL HYDROX/SIMETH 30 ML UNIT-DOSE CUP PO PRN (17:04)
[2017-05-26] MEDS: ZOLPIDEM TARTRATE 5 MG TABLET PO PRN (22:06)
[2017-05-26] MEDS: THIAMINE HCL 100 MG TABLET (FP) PO SCH (22:07)
[2017-05-27] MEDS: MAG HYDROX/AL HYDROX/SIMETH 30 ML UNIT-DOSE CUP PO PRN (01:57)
[2017-05-27] MEDS ORDERED: METHADONE HCL 5 MG TABLET (FOR DETOX USE ONLY) PO ONE (06:00)
[2017-05-27 06:55] VITALS: BP 143/78; PULSE 68; TEMP 99.1
--- NOTE | 2017-05-27 08:39 | DS ---
[facility] Detox Discharge Summary Admission Date: 05/22/17 Discharge Date: 05/27/17 - History Present History: Cocaine Dependence, Opioid Dependence, Sedative Dependence - Physical Exam Results Vital Signs: Vital Signs Temperature 99.1 F 05/27/17 06:54 Pulse Rate 68 05/27/17 06:54 Respiratory Rate 16 05/27/17 06:54 Blood Pressure 143/78 05/27/17 06:54 O2 Sat by Pulse Oximetry (%) - Treatment Hospital Course: Detox Protocol Followed, Detoxed Safely, Responded well, Discharged Condition Good, Rehab Referral Accepted - Medication Discharge Medications: Ambulatory Orders Bupropion HCl [Wellbutrin Xl -] 150 mg PO DAILY 02/11/17 Hydroxyzine Pamoate [Vistaril -] 50 mg PO TID 02/11/17 Melatonin/Pyridoxine HCl (B6) [Melatonin 5 mg Tablet] 1 each PO HS 02/25/17 Buprenorphine HCl/Naloxone HCl [Buprenorphn-Naloxn 2-0.5 mg Sl] 1 each SL DAILY #30 tab.subl MDD 1 04/15/17 Buprenorphine/Naloxone [Suboxone 8Mg/2Mg Sl Film -] 1 each SL BID #60 film MDD 2 04/15/17 Bupropion HCl [Wellbutrin Xl -] 150 mg PO DAILY #30 tab.sr.24h 05/23/17 - Diagnosis (1) Cocaine dependence, uncomplicated Current Visit: Yes Status: Chronic (2) Insomnia Current Visit: Yes Status: Acute Qualifiers: Insomnia type: primary Qualified Code(s): F51.01 - Primary insomnia (3) Insomnia Current Visit: Yes Status: Acute (4) Nicotine dependence Current Visit: Yes Status: Chronic Qualifiers: Nicotine product type: cigarettes Substance use status: uncomplicated Qualified Code(s): F17.210 - Nicotine dependence, cigarettes, uncomplicated (5) Opioid dependence with withdrawal Current Visit: Yes Status: Chronic (6) Substance induced mood disorder Current Visit: Yes Status: Acute (7) Uncomplicated sedative, hypnotic or anxiolytic withdrawal Current Visit: Yes Status: Chronic (8) Depressive disorder Current Visit: Yes Status: Chronic (9) History of depression Current Visit: Yes Status: Chronic (10) Depression Current Visit: No Status: Acute (11) Encounter for monitoring Suboxone maintenance therapy Current Visit: No Status: Acute (12) Insomnia Current Visit: No Status: Acute (13) Shoulder pain Current Visit: No Status: Acute (14) Colitis Current Visit: No Status: Chronic (15) Weight loss Current Visit: No Status: Chronic - AMA Did Patient Leave Against Medical Advice: No
[2017-05-27] MEDS: RANITIDINE HCL 150 MG TABLET (FP) PO SCH (09:20)
[2017-05-27] MEDS: PRENATAL VITAMINS W/ FOLIC ACID TABLET (FP) PO SCH (09:20)
[2017-05-27] MEDS: NICOTINE 21 MG/24 HOURS TOPICAL PATCH TD SCH (09:26)
== END 2017-05-27 09:24 | disposition home or self-care (01) | DRG 773 ==
LOC: YASAS 13:13 → Y6N 16:43
PROVIDERS: ADMIT Internal Medicine; ATTEND Internal Medicine
PROC: HZ2ZZZZ Detoxification Services for Substance Abuse Treatment (ICD-10-PCS; principal; 2017-05-22)
DX: F11.23 Opioid dependence with withdrawal (principal); F13.230 Sedative, hypnotic or anxiolytic dependence with withdrawal, uncomplicated; F14.20 Cocaine dependence, uncomplicated; F19.24 Other psychoactive substance dependence with psychoactive substance-induced mood disorder; F32.9 Major depressive disorder, single episode, unspecified; G47.00 Insomnia, unspecified; R10.13 Epigastric pain; Z87.898 Personal history of other specified conditions; Z87.19 Personal history of other diseases of the digestive system
CPT/HCPCS: 36415; 80053; 81003; 85027; 86593; 93005; 93010

== ENCOUNTER 2020-08-23 18:04 | Inpatient (IN) | payer OTHER ==
[2020-08-23 19:20] VITALS: BMI 28.3
[2020-08-23] MEDS ORDERED: chlordiazePOXIDE HCL 25 MG CAPSULE PO PRN (19:20)
[2020-08-23] MEDS ORDERED: ONDANSETRON *ODT* 4 MG TABLET SL PRN (19:20)
[2020-08-23] MEDS ORDERED: NICOTINE POLACRILEX 2 MG GUM BUC PRN (19:20)
[2020-08-23] MEDS ORDERED: MAGNESIUM CITRATE 300 ML BOTTLE PO PRN (19:20)
[2020-08-23] MEDS ORDERED: IBUPROFEN 400 MG TABLET (FP) PO PRN (19:20)
[2020-08-23] MEDS ORDERED: MAG HYDROX/AL HYDROX/SIMETH 30 ML UNIT-DOSE CUP PO PRN (19:20)
[2020-08-23] MEDS ORDERED: MAGNESIUM HYDROX 2400MG/30ML ORAL SUSPENSION 30 ML CUP PO PRN (19:20)
[2020-08-23] MEDS ORDERED: MENTHOL/PHENOL 1 EACH UD MM PRN (19:20)
[2020-08-23] MEDS ORDERED: ACETAMINOPHEN 325 MG TABLET (FP) PO PRN ×2 (19:20)
[2020-08-23] MEDS ORDERED: BISMUTH SUBSALICYLATE 524 MG/30 ML UD PO PRN (19:20)
[2020-08-23] MEDS ORDERED: METHOCARBAMOL 500 MG TABLET PO PRN (19:20)
[2020-08-23] MEDS: chlordiazePOXIDE HCL 25 MG CAPSULE PO SCH ×2 (20:39→22:41)
[2020-08-23] MEDS: PRENATAL VITAMINS W/ FOLIC ACID TABLET (FP) PO SCH (20:45)
[2020-08-23] MEDS: NICOTINE 21 MG/24 HOURS TOPICAL PATCH TD SCH (20:45)
[2020-08-23] MEDS: hydrOXYzine PAMOATE 25 MG CAPSULE (FP) PO SCH (22:41)
[2020-08-23] MEDS: THIAMINE HCL 100 MG TABLET (FP) PO SCH (22:41)
[2020-08-23] MEDS: MELATONIN 5 MG TABLETS PO SCH (22:41)
[2020-08-24] MEDS: hydrOXYzine PAMOATE 25 MG CAPSULE (FP) PO SCH ×5 (06:10→22:42)
[2020-08-24] MEDS: chlordiazePOXIDE HCL 25 MG CAPSULE PO SCH ×4 (06:11→22:41)
[2020-08-24] MEDS: PRENATAL VITAMINS W/ FOLIC ACID TABLET (FP) PO SCH (10:23)
[2020-08-24] MEDS: NICOTINE 21 MG/24 HOURS TOPICAL PATCH TD SCH (10:23)
[2020-08-24 10:37] LABS: HEMATOCRIT 37.8 % (32.4-45.2); HEMOGLOBIN 13.1 GM/dL (10.7-15.3); MCH 34.3 pg (25.7-33.7); MCHC 34.6 g/dl (32.0-36.0); MEAN CELL VOLUME 99.1 fl (80-96); MEAN PLT VOLUME 7.8 fl (7.5-11.1); PLATELET COUNT 232 K/MM3 (134-434); RBC 3.82 M/mm3 (3.60-5.2); RDW 12.1 % (11.6-15.6); WHITE BLOOD COUNT 5.8 K/mm3 (4.0-10.0)
[2020-08-24 10:38] LABS: POTASSIUM 3.9 mmol/L (3.5-5.1)
[2020-08-24 10:40] LABS: ALBUMIN 3.7 g/dl (3.4-5.0); CALCIUM 8.6 mg/dL (8.5-10.1)
[2020-08-24 10:42] LABS: BLOOD UREA NITROGEN 6.7 mg/dL (7-18)
[2020-08-24 10:43] LABS: CREATININE 1.8 mg/dL (0.55-1.3)
[2020-08-24 10:45] LABS: BILIRUBIN,TOTAL 0.2 mg/dL (0.2-1); TOT PROT 7.3 g/dl (6.4-8.2)
[2020-08-24] MEDS: MELATONIN 5 MG TABLETS PO SCH (22:42)
[2020-08-24] MEDS: THIAMINE HCL 100 MG TABLET (FP) PO SCH (22:42)
[2020-08-25] MEDS: chlordiazePOXIDE HCL 25 MG CAPSULE PO SCH ×4 (06:20→22:09)
[2020-08-25] MEDS: hydrOXYzine PAMOATE 25 MG CAPSULE (FP) PO SCH ×5 (06:20→22:10)
[2020-08-25] MEDS: NICOTINE 21 MG/24 HOURS TOPICAL PATCH TD SCH (10:39)
[2020-08-25] MEDS: PRENATAL VITAMINS W/ FOLIC ACID TABLET (FP) PO SCH (10:39)
[2020-08-25] MEDS: SUVOREXANT 5 MG TABLET PO PRN (22:09)
[2020-08-25] MEDS: THIAMINE HCL 100 MG TABLET (FP) PO SCH (22:09)
[2020-08-25] MEDS: MELATONIN 5 MG TABLETS PO SCH (22:10)
[2020-08-26] MEDS ORDERED: chlordiazePOXIDE HCL 10 MG CAPSULE PO PRN
[2020-08-26] MEDS: hydrOXYzine PAMOATE 25 MG CAPSULE (FP) PO SCH ×5 (06:14→22:04)
[2020-08-26] MEDS: chlordiazePOXIDE HCL 10 MG CAPSULE PO SCH ×4 (06:15→22:05)
[2020-08-26 09:28] LABS: POTASSIUM 4.3 mmol/L (3.5-5.1)
[2020-08-26 09:31] LABS: ALBUMIN 3.4 g/dl (3.4-5.0); BLOOD UREA NITROGEN 17.2 mg/dL (7-18)
[2020-08-26 09:35] LABS: PHOSPHOROUS 3.8 mg/dL (2.5-4.9)
[2020-08-26] MEDS: NICOTINE 21 MG/24 HOURS TOPICAL PATCH TD SCH (10:41)
[2020-08-26] MEDS: PRENATAL VITAMINS W/ FOLIC ACID TABLET (FP) PO SCH (10:41)
[2020-08-26] MEDS: SUVOREXANT 5 MG TABLET PO PRN (22:02)
[2020-08-26] MEDS: MELATONIN 5 MG TABLETS PO SCH (22:03)
[2020-08-26] MEDS: THIAMINE HCL 100 MG TABLET (FP) PO SCH (22:03)
[2020-08-27] MEDS: hydrOXYzine PAMOATE 25 MG CAPSULE (FP) PO SCH ×5 (06:00→21:53)
[2020-08-27] MEDS: chlordiazePOXIDE HCL 10 MG CAPSULE PO SCH ×2 (06:00→16:56)
[2020-08-27 07:11] LABS: SARS-CoV-2 NAA Not Detected (Not Detected)
[2020-08-27] MEDS: NICOTINE 21 MG/24 HOURS TOPICAL PATCH TD SCH (10:19)
[2020-08-27] MEDS: PRENATAL VITAMINS W/ FOLIC ACID TABLET (FP) PO SCH (10:19)
[2020-08-27] MEDS: SUVOREXANT 5 MG TABLET PO PRN (21:52)
[2020-08-27] MEDS: MELATONIN 5 MG TABLETS PO SCH (21:53)
[2020-08-27] MEDS: THIAMINE HCL 100 MG TABLET (FP) PO SCH (21:53)
[2020-08-28] MEDS ORDERED: chlordiazePOXIDE HCL 10 MG CAPSULE PO ONE (05:00)
[2020-08-28] MEDS: hydrOXYzine PAMOATE 25 MG CAPSULE (FP) PO SCH (06:03)
[2020-08-28 08:51] VITALS: BP 138/73; PULSE 69; TEMP 98.7
[2020-08-28] MEDS: PRENATAL VITAMINS W/ FOLIC ACID TABLET (FP) PO SCH (09:05)
== END 2020-08-28 09:07 | disposition home or self-care (01) | DRG 774 ==
LOC: YASAS 18:04 → Y6N 19:34
PROVIDERS: ADMIT Allergy & Immunology; ATTEND Allergy & Immunology
PROC: HZ2ZZZZ Detoxification Services for Substance Abuse Treatment (ICD-10-PCS; principal; 2020-08-23)
DX: F10.230 Alcohol dependence with withdrawal, uncomplicated (principal); F13.230 Sedative, hypnotic or anxiolytic dependence with withdrawal, uncomplicated; F14.20 Cocaine dependence, uncomplicated; F17.210 Nicotine dependence, cigarettes, uncomplicated; F19.282 Other psychoactive substance dependence with psychoactive substance-induced sleep disorder; F19.24 Other psychoactive substance dependence with psychoactive substance-induced mood disorder; F32.9 Major depressive disorder, single episode, unspecified; G47.00 Insomnia, unspecified; K21.9 Gastro-esophageal reflux disease without esophagitis
CPT/HCPCS: 36415; 80053; 80069; 85027; 86780; C9803; Q0162; U0003; U0005

== ENCOUNTER 2021-11-09 10:02 | Inpatient (IN) | payer OTHER ==
[2021-11-09 11:47] VITALS: BMI 28.3
[2021-11-09] MEDS ORDERED: MAG HYDROX/AL HYDROX/SIMETH 30 ML UNIT-DOSE CUP PO PRN (12:50)
[2021-11-09] MEDS ORDERED: IBUPROFEN 400 MG TABLET (FP) PO PRN (12:50)
[2021-11-09] MEDS ORDERED: BISMUTH SUBSALICYLATE 524 MG/30 ML PO PRN (12:50)
[2021-11-09] MEDS ORDERED: MAGNESIUM HYDROX 2400MG/30ML ORAL SUSPENSION 30 ML CUP PO PRN (12:50)
[2021-11-09] MEDS ORDERED: diazePAM 5 MG TABLET PO ONE (12:50)
[2021-11-09] MEDS ORDERED: BENZOCAINE/MENTHOL (CHLORASEPTIC ) LOZENGE MM PRN (12:50)
[2021-11-09] MEDS ORDERED: NICOTINE 10 MG CARTRIDGE (INHALER) IH PRN (12:50)
[2021-11-09] MEDS ORDERED: ONDANSETRON *ODT* 4 MG TABLET SL PRN (12:50)
[2021-11-09] MEDS ORDERED: LOPERAMIDE HCL 2 MG CAPSULE PO PRN (12:50)
[2021-11-09] MEDS ORDERED: DICYCLOMINE HCL 10 MG CAPSULE PO PRN (12:50)
[2021-11-09] MEDS ORDERED: IBUPROFEN 600 MG TABLET (FP) PO PRN (12:50)
[2021-11-09] MEDS ORDERED: MAGNESIUM CITRATE 300 ML BOTTLE PO PRN (12:50)
[2021-11-09] MEDS ORDERED: ACETAMINOPHEN 325 MG TABLET (FP) PO PRN (12:50)
[2021-11-09] MEDS ORDERED: ALBUTEROL SO4 HFA INHALER IH PRN (13:05)
[2021-11-09] MEDS: diazePAM 5 MG TABLET PO SCH ×2 (18:12→22:24)
[2021-11-09] MEDS: ACETAMINOPHEN 325 MG TABLET (FP) PO PRN (18:13)
[2021-11-09] MEDS: diazePAM 5 MG TABLET PO PRN (18:16)
[2021-11-09] MEDS ORDERED: MELATONIN 5 MG TABLETS PO SCH (22:00)
[2021-11-09] MEDS: THIAMINE HCL 100 MG TABLET (FP) PO SCH (22:23)
[2021-11-10] MEDS: diazePAM 5 MG TABLET PO SCH ×4 (05:54→22:12)
[2021-11-10 10:10] LABS: HEMOGLOBIN 13.1 GM/dL (10.7-15.3); MCH 33.6 pg (25.7-33.7); MCHC 34.5 g/dl (32.0-36.0); MEAN CELL VOLUME 97.3 fl (80-96); MEAN PLT VOLUME 7.9 fl (7.5-11.1); PLATELET COUNT 197 10^3/uL (134-434); WHITE BLOOD COUNT 5.3 K/mm3 (4.0-10.0)
[2021-11-10 10:15] LABS: BLOOD UREA NITROGEN 13.6 mg/dL (7-18); CALCIUM 8.4 mg/dL (8.5-10.1)
[2021-11-10 10:16] LABS: ALBUMIN 3.2 g/dl (3.4-5.0)
[2021-11-10 10:20] LABS: BILIRUBIN,TOTAL 0.3 mg/dL (0.2-1); TOT PROT 6.9 g/dl (6.4-8.2)
[2021-11-10] MEDS: PRENATAL VITAMINS W/ FOLIC ACID TABLET (FP) PO SCH (10:39)
[2021-11-10] MEDS: diazePAM 5 MG TABLET PO PRN (13:12)
[2021-11-10] MEDS: MELATONIN 5 MG TABLETS PO SCH (22:13)
[2021-11-10] MEDS: THIAMINE HCL 100 MG TABLET (FP) PO SCH (22:13)
[2021-11-10] MEDS: METHOCARBAMOL 500 MG TABLET PO PRN (22:14)
[2021-11-11] MEDS: diazePAM 5 MG TABLET PO SCH ×3 (05:34→22:08)
[2021-11-11] MEDS: METHOCARBAMOL 500 MG TABLET PO PRN ×2 (05:34→17:42)
[2021-11-11] MEDS: PRENATAL VITAMINS W/ FOLIC ACID TABLET (FP) PO SCH (10:16)
[2021-11-11] MEDS: diazePAM 5 MG TABLET PO PRN ×2 (10:17→17:43)
[2021-11-11] MEDS: MELATONIN 5 MG TABLETS PO SCH (22:08)
[2021-11-11] MEDS: THIAMINE HCL 100 MG TABLET (FP) PO SCH (22:09)
[2021-11-12] MEDS: diazePAM 5 MG TABLET PO SCH ×2 (05:37→17:18)
[2021-11-12] MEDS: METHOCARBAMOL 500 MG TABLET PO PRN ×3 (05:37→22:13)
[2021-11-12] MEDS: diazePAM 5 MG TABLET PO PRN (10:28)
[2021-11-12] MEDS: PRENATAL VITAMINS W/ FOLIC ACID TABLET (FP) PO SCH (10:28)
[2021-11-12] MEDS: ACETAMINOPHEN 325 MG TABLET (FP) PO PRN (19:19)
[2021-11-12] MEDS: MELATONIN 5 MG TABLETS PO SCH (22:12)
[2021-11-12] MEDS: THIAMINE HCL 100 MG TABLET (FP) PO SCH (22:12)
[2021-11-13] MEDS: METHOCARBAMOL 500 MG TABLET PO PRN (05:15)
[2021-11-13] MEDS ORDERED: diazePAM 5 MG TABLET PO ONE (06:00)
[2021-11-13 08:55] VITALS: BP 105/71; PULSE 80; TEMP 96.9
== END 2021-11-13 09:33 | disposition home or self-care (01) | DRG 774 ==
LOC: YASAS 10:02 → Y3N 15:27
PROVIDERS: ADMIT Allergy & Immunology; ATTEND Surgery
PROC: HZ2ZZZZ Detoxification Services for Substance Abuse Treatment (ICD-10-PCS; principal; 2021-11-09)
DX: F10.230 Alcohol dependence with withdrawal, uncomplicated (principal); F13.230 Sedative, hypnotic or anxiolytic dependence with withdrawal, uncomplicated; F14.20 Cocaine dependence, uncomplicated; F17.210 Nicotine dependence, cigarettes, uncomplicated; F32.A Depression, unspecified; F19.24 Other psychoactive substance dependence with psychoactive substance-induced mood disorder; F19.282 Other psychoactive substance dependence with psychoactive substance-induced sleep disorder; J45.20 Mild intermittent asthma, uncomplicated; M17.0 Bilateral primary osteoarthritis of knee; Z56.0 Unemployment, unspecified
CPT/HCPCS: 36415; 80053; 81025; 85027; 86780; C9803-CS; U0003; U0005